=== PATIENT | male | born 1960 | race Native Hawaiian/Other Pacific Islander ===

== ENCOUNTER 2022-01-08 08:47 | Outpatient (CLI) | payer OTHER, BC | END 2022-01-08 21:35 | disposition home or self-care (01) | LOC: CT 08:47 | PROVIDERS: ATTEND Nurse Practitioner Family | DX: R10.13 Epigastric pain (principal); R14.0 Abdominal distension (gaseous); R16.0 Hepatomegaly, not elsewhere classified; R16.1 Splenomegaly, not elsewhere classified | CPT/HCPCS: 36415; 82565; 84520; Q9963 ==

== ENCOUNTER 2022-09-02 13:20 | Outpatient (CLI) | payer OTHER, BC | END 2022-09-02 22:00 | disposition home or self-care (01) | LOC: RAD 13:20 | PROVIDERS: ATTEND Nurse Practitioner Family | DX: R05.3 Chronic cough (principal) ==